=== PATIENT | male | born 1965 | race Caucasian/White ===

== ENCOUNTER 2021-05-18 07:20 | Day surgery (SDC) | payer OTHER ==
[~2021-05-18] VITALS: Ht 180.3 cm; Wt 90.9 kg
[~2021-05-18 07:20] MED LIST: IBUPROFEN600 MG PO; PERCOCET 5-3251 EACH PO
[2021-05-18] MEDS ORDERED: HYDROCODON-ACE1 EA10 PO (09:53)
[2021-05-18] MEDS ORDERED: DICLOFENAC SODI75 MG PO (09:53)
--- NOTE | 2021-05-21 07:01 | OR ---
[facility] [place] [facility] [address], [place] [address] Signed DATE OF OPERATION: 05/18/2021 SURGEON: Milo Kramer MD PREOPERATIVE DIAGNOSIS: Posterior superior labral tear, right shoulder. POSTOPERATIVE DIAGNOSES: 1. Posterior superior labral tear, right shoulder. 2. Partial rotator cuff tear. PROCEDURES PERFORMED: Right shoulder arthroscopy with debridement of posterior labral tear and partial rotator cuff tear, subacromial decompression. MANAGER ENVIRONMENTAL AFFAIRS: None. ANESTHESIA: General. BLOOD LOSS: Minimal. BRIEF HISTORY: Jesus is a 55-year-old gentleman with painful shoulder, nonresponsive to medical treatment. Risks and benefits of operative treatment were discussed and he elected to proceed. DESCRIPTION OF PROCEDURE: Once consent was obtained, he was taken to the operating room. After adequate anesthesia, he was placed in a beach chair position. All downside pressure points well padded. The right shoulder was prepped and draped in a standard sterile fashion. The standard posterior portal was made, and the scope was introduced into the shoulder. ARTHROSCOPIC FINDINGS: There was extensive synovitis throughout the shoulder and the subacromial space with marked thickening of the bursa. The glenohumeral surfaces showed grade 2 changes to the glenoid with minimal changes to the humerus. The biceps, biceps anchor, and labrum were intact anteriorly. The posterior labrum was frayed and pretty much macerated and gone Electronically Signed By: MILO KRAMER MD 05/21/21 0701 PATIENT NAME: JESUS GMOEZ JONE OPERATIVE REPORT DATE OF : 67 REPORT #: [id number] PHYSICIAN: MILO KRAMER MD PCP: GEOFFREY CABRERA PAC REPORT IS CONFIDENTIAL AND NOT TO BE RELEASED WITHOUT AUTHORIZATION [facility] [place] [facility] [address], [place] [address] Signed from the posterior aspect of the biceps posteriorly. Again, the biceps anchor was quite stable. The undersurface of the rotator cuff showed a 1.5 cm partial-thickness tear extending from the biceps posteriorly. This was only about 25% to 30% of the tendon. The superior portion of the tendon was intact. The acromion was type 2. DESCRIPTION OF PROCEDURE: Standard anterior portal was made in an outside-in technique. The shaver and Mitek VAPR were then used to remove the synovitis throughout the shoulder and cauterized the bleeders. The posterior labrum, which was macerated and frayed and pretty much absent was debrided to stable rims. The undersurface of the rotator cuff was evaluated and was debrided using the shaver down to bleeding tissue. There was about 60% to 70% of the tendon remaining. The scope was withdrawn, placed in subacromial space and standard lateral portal was made. Using again a combination of the shaver and Mitek VAPR, the bursa was removed to allow visualization of the superior surface of the rotator cuff. All bleeders were cauterized as we went. Again, there was extensive bursitis and this took a fair bit of time to fully debride the bursa. Once this was completed, the superior surface was found to be intact. The scope was withdrawn. Portals were closed with 3-0 nylon and dressed with Allevyn and Tegaderm. He was awakened and taken to the recovery room in satisfactory condition. All sponge, needle, and instrument counts were correct. Milo Kramer MD BA/ANTOINETTEL /[id number] Copies: ~ Electronically Signed By: MILO KRAMER MD 05/21/21 0701 PATIENT NAME: JESUS GOMEZ OPERATIVE REPORT DATE OF : 67 REPORT #: [id number] PHYSICIAN: MILO KRAMER MD PCP: GEOFFREY CABRERA PAC REPORT IS CONFIDENTIAL AND NOT TO BE RELEASED WITHOUT AUTHORIZATION
== END 2021-05-18 11:45 | disposition home or self-care (01) ==
LOC: DS 07:20
PROVIDERS: ATTEND Specialist
PROC: 0RBJ4ZZ Excision of Right Shoulder Joint, Percutaneous Endoscopic Approach (ICD-10-PCS; principal; 2021-05-18 08:50)
DX: S43.491A Other sprain of right shoulder joint, initial encounter (principal); X58.XXXA Exposure to other specified factors, initial encounter; M75.111 Incomplete rotator cuff tear or rupture of right shoulder, not specified as traumatic; G89.18 Other acute postprocedural pain; M65.9 Synovitis and tenosynovitis, unspecified
CPT/HCPCS: 64415; 76942; C1713; J0690; J1100; J1885; J2001; J2250; J2405; J2704; J2795; J7121

== ENCOUNTER 2022-03-21 09:22 | Emergency (ER) | payer OTHER ==
[~2022-03-21] VITALS: Ht 180.3 cm; Wt 123.2 kg
[~2022-03-21 09:22] MED LIST changes: +DICLOFENAC POTA50 MG PO; +DICLOFENAC SODI75 MG PO; +HYDROCODON-ACE1 EA10 PO; +VENLAFAXINE H37.5 M1 PO; +VENLAFAXINE HCL75 M1 PO
--- OUTSIDE RECORDS SUMMARY | 2022-03-21 09:27 | XMS ---
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 Gela VISIT COUNT (12 MO.) 2 [facility] TOTAL 2 NOTE: Visits indicate total known visits. ED/UCC VISIT TRACKING (12 MO.) 03/21/2022 09:23 [facility] TYPE: Emergency COMPLAINT: - DIZZY, UNABLE TO FOCUS, FOGGY BRAIN 02/25/2022 08:06 [facility] TYPE: Emergency COMPLAINT: - CONFUSION INPATIENT VISIT TRACKING (12 MO.) 02/25/2022 12:32 [facility] TYPE: Medical Surgical COMPLAINT: - ALTERED MENTAL STATUS, POSSIBLE MENINGITIS DIAGNOSES: - Other penitentiary (current) drug therapy - Compression of brain - Unspecified mood [affective] disorder - Viral meningitis, unspecified - Spinal stenosis, cervical region - salvage determiner (current) use of opiate analgesic - Contact with and (suspected) exposure to COVID-19 - Anxiety disorder, unspecified - Meningismus - Other penitentiary (current) drug therapy - Meningismus - Contact with and (suspected) exposure to COVID-19 - Other specified postprocedural states - Unspecified mood [affective] disorder - Other specified postprocedural states - Unspecified viral encephalitis - Viral meningitis, unspecified - Spinal stenosis, cervical region - Myelopathy in diseases classified elsewhere - half-way (current) use of opiate analgesic - Myelopathy in diseases classified elsewhere - Anxiety disorder, unspecified - Compression of brain [email or web address]
[2022-03-21] MEDS ORDERED: ATIVAN1 MG PO (13:56)
[2022-03-21] MEDS ORDERED: PREDNISONE20 MG PO (13:56)
--- NOTE | 2022-03-23 15:48 | EKG ---
[facility] [address] [facility] [place], [place] [address] Signed Normal sinus rhythm Normal ECG When compared with ECG of 25-FEB-2022 08:28, QRS axis shifted right Confirmed by BARTOLOME MCMAHON MD ([id number]) on 03/23/2022 3:47:52 PM Electronically Signed By: BARTOLOME MCMAHON MD 03/23/22 1548 PATIENT NAME: PATRICIAPHOEBE JONE Electrocardiogram DATE OF : 67 PHYSICIAN: BARTOLOME MCMAHON MD REPORT #: [id number] REPORT IS CONFIDENTIAL AND NOT TO BE RELEASED WITHOUT AUTHORIZATION
== END 2022-03-21 14:09 | disposition home or self-care (01) ==
LOC: ED 09:22
DX: R51.9 Headache, unspecified (principal); M48.02 Spinal stenosis, cervical region; Z79.899 Other long term (current) drug therapy
CPT/HCPCS: 36415; 80053; 85025; 87502; 93005; 93010; 96374; 96375; 99284-25; J1100; J2060; U0003

== ENCOUNTER 2022-04-12 08:26 | Day surgery (SDC) | payer OTHER ==
[~2022-04-12] VITALS: Ht 180.3 cm; Wt 118.2 kg
[~2022-04-12 08:26] MED LIST changes: +ATIVAN1 MG PO; +PREDNISONE20 MG PO
[2022-04-12] MEDS ORDERED: TYLENOL EXTRA500 MG PO (08:47)
[2022-04-12] MEDS ORDERED: HYDROCODON-ACE1 EA10 PO (12:45)
--- NOTE | 2022-04-12 13:02 | NUR ---
04/12/22 1302 Sheets,Sharron 1242 PT ARRIVED TO PACU ON RA AND AWAKE. VSS. PLAN OF CARE DISCUSSED. PT DENIES PAIN AND PT 5TH DIGIT IS NUMB, EDUCATION GIVEN.
--- NOTE | 2022-04-15 06:58 | OR ---
[facility] [address] [facility] [place], [place] [address] Signed DATE OF OPERATION: 04/12/2022 SURGEON: Milo Kramer MD PREOPERATIVE DIAGNOSIS: Displaced P1 fracture, right small toe. POSTOPERATIVE DIAGNOSIS: Displaced P1 fracture, right small toe. PROCEDURE PERFORMED: Closed reduction and percutaneous pinning, right small toe. ARCHITECTURAL TECHNICIAN: None. ANESTHESIA: Local with sedation. BLOOD LOSS: Minimal. IMPLANTS: Two 1.25 K-wires. BRIEF HISTORY: Jesus is a 56-year-old gentleman, who broke his toe and he had displacement of the proximal phalanx. Risks and benefits of closed reduction and pinning were discussed with him and he elected to proceed. DESCRIPTION OF PROCEDURE: Once consent was obtained, he was taken to the operating room. After adequate anesthesia, he was left on the day surgery bed. The foot was prepped and draped in a standard sterile fashion. After local was established, closed reduction was attempted, however, the fragment was quite loose. We then introduced the percutaneous pin clamp and manipulated the fragment until the articular surface was reduced and placed two K-wires from the lateral side of the proximal phalanx across the fracture engaging the medial side. The fracture was stable. Both K-wires were cut and Jurgan balls were placed. It was then dressed with sterile gauze and he was awakened taken to the recovery room in Electronically Signed By: MILO KRAMER MD 04/15/22 0658 PATIENT NAME: JESUS GOMEZ OPERATIVE REPORT DATE OF : 67 REPORT #: [id number] PHYSICIAN: MILO KRAMER MD PCP: VERN MEHTA PA-C REPORT IS CONFIDENTIAL AND NOT TO BE RELEASED WITHOUT AUTHORIZATION [address] [place] [address] Signed satisfactory condition. All sponge, needle, and instrument counts were correct. Milo Kramer MD BA/MODL /[id number] Copies: ~ Electronically Signed By: MILO KRAMER MD 04/15/22 0658 PATIENT NAME: JESUS GOMEZ OPERATIVE REPORT DATE OF : 67 REPORT #: [id number] PHYSICIAN: MILO KRAMER MD PCP: VERN MEHTA PA-C REPORT IS CONFIDENTIAL AND NOT TO BE RELEASED WITHOUT AUTHORIZATION
== END 2022-04-12 13:25 | disposition home or self-care (01) ==
LOC: DS 08:26
PROVIDERS: ATTEND Specialist
PROC: 0QSQXZZ Reposition Right Toe Phalanx, External Approach (ICD-10-PCS; principal; 2022-04-12 12:00)
DX: S92.911A Unspecified fracture of right toe(s), initial encounter for closed fracture (principal); F41.9 Anxiety disorder, unspecified; F32.A Depression, unspecified
CPT/HCPCS: 01462; 73660; J0690; J1885; J2001; J2250; J2704; J2795; J7121

== ENCOUNTER 2022-07-16 18:17 | Emergency (ER) | payer OTHER ==
[~2022-07-16] VITALS: Ht 180.3 cm; Wt 117.9 kg
[~2022-07-16 18:17] MED LIST changes: +TYLENOL EXTRA500 MG PO
--- OUTSIDE RECORDS SUMMARY | 2022-07-16 18:20 | XMS ---
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 ESenait VISIT COUNT (12 MO.) 3 [facility] TOTAL 3 NOTE: Visits indicate total known visits. ED/UCC VISIT TRACKING (12 MO.) 07/16/2022 18:18 [facility] TYPE: Emergency COMPLAINT: - SEIZURE 03/21/2022 09:23 [facility] TYPE: Emergency COMPLAINT: - DIZZY, UNABLE TO FOCUS, FOGGY BRAIN DIAGNOSES: - Spinal stenosis, cervical region - Headache, unspecified - Contact with and (suspected) exposure to COVID-19 - Other snf (current) drug therapy - Dizziness and giddiness 02/25/2022 08:06 [facility] TYPE: Emergency COMPLAINT: - CONFUSION INPATIENT VISIT TRACKING (12 MO.) 06/21/2022 16:56 [facility] TYPE: Medical Surgical DIAGNOSES: - Conversion disorder with seizures or convulsions - Anxiety disorder, unspecified - Recalcitrant Seizures - Radiculopathy, cervical region - Disease of spinal cord, unspecified 06/14/2022 08:29 [facility] TYPE: Intensive Care DIAGNOSES: - Hemiplegia, unspecified affecting left nondominant side - Chencho's paralysis (postepileptic) - Myelitis, unspecified - Radiculopathy, cervical region - Other malaise - Spinal stenosis, cervical region - Other specified health status - Encephalitis and encephalomyelitis, unspecified - Other reduced mobility - Cervicalgia - Unspecified abnormalities of gait and mobility 02/25/2022 12:32 [facility] TYPE: Medical Surgical COMPLAINT: - ALTERED MENTAL STATUS, POSSIBLE MENINGITIS DIAGNOSES: - Unspecified mood [affective] disorder - Unspecified viral encephalitis - Other specified postprocedural states - Viral meningitis, unspecified - Myelopathy in diseases classified elsewhere - Spinal stenosis, cervical region - long term (current) use of opiate analgesic - Myelopathy in diseases classified elsewhere - Anxiety disorder, unspecified - Compression of brain - Other snf (current) drug therapy - Unspecified mood [affective] disorder - Compression of brain - Viral meningitis, unspecified - long term (current) use of opiate analgesic - Spinal stenosis, cervical region - Contact with and (suspected) exposure to COVID-19 - Anxiety disorder, unspecified - Meningismus - Other termination clerk (current) drug therapy - Meningismus - Contact with and (suspected) exposure to COVID-19 - Other specified postprocedural states [email or web address]
[2022-07-16] MEDS ORDERED: LACOSAMIDE100 MG PO (18:31)
[2022-07-16] MEDS ORDERED: ATIVAN1 MG PO (20:28)
== END 2022-07-16 20:57 | disposition home or self-care (01) ==
LOC: ED 18:17
DX: R56.9 Unspecified convulsions (principal); Z88.8 Allergy status to other drugs, medicaments and biological substances; Z79.899 Other long term (current) drug therapy
CPT/HCPCS: 36415; 80053; 85025; 96374; 99285-25; G0480; J2060; J7040

== ENCOUNTER 2023-08-07 16:28 | Emergency (ER) | payer OTHER ==
[~2023-08-07] VITALS: Ht 180.3 cm; Wt 126.6 kg
[~2023-08-07 16:28] MED LIST changes: +LACOSAMIDE100 MG PO; +LISINOPRIL20 MG PO
[2023-08-07 17:25] VITALS: BP 160/85
== END 2023-08-07 17:24 | disposition home or self-care (01) ==
LOC: ED 16:28
DX: S50.11XA Contusion of right forearm, initial encounter (principal); W00.1XXA Fall from stairs and steps due to ice and snow, initial encounter; Y92.009 Unspecified place in unspecified non-institutional (private) residence as the place of occurrence of the external cause; Z79.899 Other long term (current) drug therapy; Z88.8 Allergy status to other drugs, medicaments and biological substances
CPT/HCPCS: 73090; 99283-25